=== PATIENT | male | born 1985 | race Caucasian/White ===

== ENCOUNTER 2021-03-16 14:38 | Emergency (ER) | payer OTHER ==
[~2021-03-16] VITALS: Ht 172.7 cm; Wt 75.0 kg
[2021-03-16 15:20] LABS: COVID AG,FIA SOURCE NASAL SWAB
[2021-03-16 16:26] VITALS: BP 116/93
== END 2021-03-16 16:26 | disposition home or self-care (01) ==
LOC: EMS 14:57
DX: U07.1 COVID-19 (principal)
CPT/HCPCS: 87426; 99283; U0003

== ENCOUNTER 2021-08-06 01:12 | Emergency (ER) | payer OTHER ==
[~2021-08-06] VITALS: Ht 175.3 cm; Wt 88.6 kg
[2021-08-06 02:10] VITALS: BP 127/74
[2021-08-06] MEDS ORDERED: IBUPROFEN 800 MG TABLET PO ONE (03:00)
[2021-08-06] MEDS ORDERED: SILVER SULFADIAZINE 1% 25 GM CREAM TP ONE (03:00)
== END 2021-08-06 03:11 | disposition home or self-care (01) ==
LOC: EMS 01:14
DX: T23.112A Burn of first degree of left thumb (nail), initial encounter (principal); X08.8XXA Exposure to other specified smoke, fire and flames, initial encounter; Y93.89 Activity, other specified; Y92.89 Other specified places as the place of occurrence of the external cause; Y99.8 Other external cause status
CPT/HCPCS: 16020; 99282; 99283

== ENCOUNTER 2022-06-06 22:57 | Emergency (ER) | payer OTHER ==
[~2022-06-06] VITALS: Ht 170.2 cm; Wt 86.4 kg
[2022-06-06 22:58] VITALS: BP 121/73
== END 2022-06-07 00:04 | disposition home or self-care (01) ==
LOC: EMS 22:58
DX: R13.10 Dysphagia, unspecified (principal); F17.210 Nicotine dependence, cigarettes, uncomplicated; F12.90 Cannabis use, unspecified, uncomplicated
CPT/HCPCS: 99281; Z7502

== ENCOUNTER 2022-12-29 16:33 | Emergency (ER) | payer OTHER ==
[~2022-12-29] VITALS: Ht 170.2 cm; Wt 95.5 kg
[2022-12-29] MEDS ORDERED: SODIUM CHLORIDE 0.9% 1,000 ML IV ONE (17:45)
[2022-12-29] MEDS ORDERED: METOCLOPRAMIDE HCL 5 MG/ML 2 ML VIAL IVP ONE (17:45)
[2022-12-29 18:03] LABS: BASOPHILS % (AUTO) 0.1 % (0.0-2.0); EOSINOPHILS % (AUTO) 0.2 % (1.0-6.0); HEMATOCRIT 45.5 % (41-53); HEMOGLOBIN 14.9 g/dL (13.5-17.5); LYMPHOCYTES % (AUTO) 5.9 % (22.0-44.0); MEAN CORPUSCULAR HGB CONC 32.8 G/dL (31.0-37.0); MEAN CORPUSCULAR VOLUME 83 fL (80-100); MONOCYTES # (AUTO) 0.7 K/uL (0.1-1.0); MONOCYTES % (AUTO) 4.2 % (2.0-9.0); PLATELET COUNT (AUTO) 306 K/uL (150-450); RED BLOOD CELL COUNT(AUTO) 5.52 MIL/uL (4.50-5.90); RED CELL DISTRIBUTION WIDTH 13.1 % (11.5-14.5)
[2022-12-29 18:04] LABS: NEUTROPHILS % (AUTO) 89.6 % (40.0-70.0)
[2022-12-29 18:13] LABS: ANION GAP 8 mmol/L (8-16); CALCIUM, TOTAL 9.1 mg/dL (8.8-10.5); CARBON DIOXIDE 26 mmol/L (22-29); CHLORIDE 99 mmol/L (98-107); CREATININE 1.01 mg/dL (0.60-1.30); GLOMERULAR FILTR. RATE CALC > 60 mL/min (>60); GLUCOSE,RANDOM 116 mg/dL (70-110); POTASSIUM 3.4 mmol/L (3.5-5.1); SODIUM SERUM 133 mmol/L (136-145)
[2022-12-29 18:14] LABS: APPEARANCE,URINE TURBID (CLEAR); BILIRUBIN,URINE NEGATIVE (NEGATIVE); GLUCOSE, URINE (UA) NEGATIVE (NEGATIVE); KETONES,URINE TRACE mg/dL (NEGATIVE); LEUKOCYTE ESTERASE ,URINE LARGE (NEGATIVE); NITRATE,URINE NEGATIVE (NEGATIVE); OCCULT BLOOD,URINE LARGE (NEGATIVE); PROTEIN,URINE 100-200,SEE CONFIRM mg/dL (NEGATIVE); SPECIFIC GRAVITIY, URINE 1.013 (1.003-1.030); UROBILINOGEN,URINE <=1.0 mg/dL (<=1.0)
[2022-12-29 18:19] LABS: ALANINE AMINOTRANSFERASE 24 U/L (12-78); ALBUMIN 4.1 g/dL (3.4-5.0); ALKALINE PHOSPHATASE 150 U/L (46-116); ASPARTATE AMINOTRANSFERASE 16 U/L (15-37); BILIRUBIN,TOTAL 0.9 mg/dL (0.1-1.0); TOTAL PROTEIN, SERUM 8.1 g/dL (6.4-8.2)
[2022-12-29 18:25] LABS: COVID AG,FIA SOURCE NASAL SWAB
[2022-12-29 18:30] LABS: BACTERIA,URINE Rare /HPF (None Seen); RBC,URINE 51-100 /HPF (0-2); SQUAMOUS EPITHELIAL CELL,UR Rare /LPF (None Seen); SULFOSALICYLIC ACID,URINE 2+ (Negative)
[2022-12-29] MEDS ORDERED: CefTRIAXone 1 GM/DEXTROSE 50 ML IV ONE (18:30)
[2022-12-29 18:43] LABS: INFLUENZA TYPE A NEGATIVE FOR TYPE A (NEGATIVE); INFLUENZA TYPE B NEGATIVE FOR TYPE B (NEGATIVE)
[2022-12-29] MEDS ORDERED: CEPH-558 PO (19:30)
[2022-12-29 20:04] VITALS: BP 120/88
== END 2022-12-29 20:10 | disposition home or self-care (01) ==
LOC: EMS 16:34
DX: N39.0 Urinary tract infection, site not specified (principal); F17.210 Nicotine dependence, cigarettes, uncomplicated; F12.90 Cannabis use, unspecified, uncomplicated; Z20.822 Contact with and (suspected) exposure to COVID-19
CPT/HCPCS: 99285; 74176; 96365; 96361; 96375; 87426; 80053; 81001; 83605; 85025; 87040; 87804; 87086; 87186; 36415; J0696; J2765; J7030; 81002

== ENCOUNTER 2023-07-23 17:57 | Emergency (ER) | payer OTHER ==
[~2023-07-23] VITALS: Ht 170.2 cm; Wt 93.0 kg
[~2023-07-23 17:57] MED LIST: CEPH-558 PO
[2023-07-23 18:03] VITALS: BP 141/69; PULSE 70; RESP 16; TEMP 97.8
[2023-07-23] MEDS ORDERED: ACETAMINOPHEN 500 MG TABLET PO ONE (18:15)
[2023-07-23] MEDS ORDERED: IBUPROFEN 600 MG TABLET PO ONE (18:15)
[2023-07-23] MEDS ORDERED: AMOX TR/POT CLAV 875 MG/125 MG TABLET PO ONE (18:15)
[2023-07-23] MEDS ORDERED: AMOX1TAB16 PO (18:22)
[2023-07-23] MEDS ORDERED: ACET-3385 PO (18:22)
[2023-07-23] MEDS ORDERED: IBUP-1492 PO (18:22)
== END 2023-07-23 18:55 | disposition home or self-care (01) ==
LOC: EMS 18:07
DX: K08.89 Other specified disorders of teeth and supporting structures (principal); Z87.891 Personal history of nicotine dependence
CPT/HCPCS: 99284; Z7502; Z7610

== ENCOUNTER 2024-05-02 23:13 | Emergency (ER) | payer MEDICAID, OTHER ==
[~2024-05-02] VITALS: Ht 170.2 cm; Wt 88.6 kg
[~2024-05-02 23:13] MED LIST changes: +ACET-3385 PO; +AMOX-457 PO; -CEPH-558 PO; +IBUP-1492 PO
[2024-05-02 23:19] VITALS: TEMP 98.7
[2024-05-02 23:36] LABS: BASOPHILS % (AUTO) 1.3 % (0.0-2.0); HEMATOCRIT 52.2 % (41-53); HEMOGLOBIN 17.3 g/dL (13.5-17.5); LYMPHOCYTES # (AUTO) 1.8 K/uL (1.0-4.8); LYMPHOCYTES % (AUTO) 38.1 % (22.0-44.0); MEAN CORPUSCULAR HEMOGLOBIN 27.4 pg (26.0-34.0); MEAN CORPUSCULAR HGB CONC 33.1 G/dL (31.0-37.0); MEAN CORPUSCULAR VOLUME 83 fL (80-100); MONOCYTES # (AUTO) 0.9 K/uL (0.1-1.0); MONOCYTES % (AUTO) 18.3 % (2.0-9.0); NEUTROPHILS % (AUTO) 41.3 % (40.0-70.0); PLATELET COUNT (AUTO) 296 K/uL (150-450); RED BLOOD CELL COUNT(AUTO) 6.31 MIL/uL (4.50-5.90); RED CELL DISTRIBUTION WIDTH 13.1 % (11.5-14.5); WHITE BLOOD COUNT (AUTO) 4.8 K/uL (4.5-11.0)
[2024-05-02 23:46] LABS: ANION GAP 9 mmol/L (8-16); CALCIUM, TOTAL 9.2 mg/dL (8.8-10.5); CARBON DIOXIDE 29 mmol/L (22-29); CHLORIDE 96 mmol/L (98-107); CREATININE 1.01 mg/dL (0.60-1.30); GLOMERULAR FILTR. RATE CALC > 60 mL/min (>60); GLUCOSE,RANDOM 119 mg/dL (70-110); LIPASE 29 U/L (16-77); POTASSIUM 3.6 mmol/L (3.5-5.1); SODIUM SERUM 134 mmol/L (136-145); UREA NITROGEN, BLOOD 11 mg/dL (7-18)
[2024-05-03] MEDS: ONDANSETRON HCL 4 MG/2 ML VIAL IVP ONE (01:32)
[2024-05-03] MEDS: SODIUM CHLORIDE 0.9% 500 ML IV ONE (01:32)
[2024-05-03 01:41] LABS: APPEARANCE,URINE CLEAR (CLEAR); BILIRUBIN,URINE NEGATIVE (NEGATIVE); COLOR,URINE YELLOW (YELLOW); GLUCOSE, URINE (UA) NEGATIVE (NEGATIVE); KETONES,URINE NEGATIVE (NEGATIVE); LEUKOCYTE ESTERASE ,URINE NEGATIVE (NEGATIVE); NITRATE,URINE NEGATIVE (NEGATIVE); OCCULT BLOOD,URINE MODERATE (NEGATIVE); PROTEIN,URINE 30-70 mg/dL (NEGATIVE); SPECIFIC GRAVITIY, URINE 1.025 (1.003-1.030)
[2024-05-03 01:56] LABS: BACTERIA,URINE None Seen /HPF (None Seen); SQUAMOUS EPITHELIAL CELL,UR Few /LPF (None Seen); WBC,URINE None Seen /HPF (0-5)
[2024-05-03] MEDS: MAG HYDROX/ALUMINUM HYD/SIMETH ES 30 ML SUSPENSION UDCUP PO ONE (02:55)
[2024-05-03] MEDS: FAMOTIDINE 20 MG TABLET PO ONE (02:55)
[2024-05-03 03:00] VITALS: BP 134/91; PULSE 62; RESP 20; O2SAT 99
[2024-05-03] MEDS ORDERED: ONDA-104 PO (03:06)
== END 2024-05-03 04:05 | disposition home or self-care (01) ==
LOC: EMS 23:14
DX: R11.2 Nausea with vomiting, unspecified (principal); R50.9 Fever, unspecified; R10.13 Epigastric pain
CPT/HCPCS: 99283; 80048; 81001; 83690; 85025; 36415; 96374; 96361; J2405; J7040